=== PATIENT | male | born 1970 | race Caucasian/White ===

== ENCOUNTER 2020-12-21 18:05 | Emergency (ER) | payer OTHER ==
[2020-12-21] MEDS ORDERED: CELEBREX100 MG PO (22:24)
== END 2020-12-21 22:20 | disposition home or self-care (01) ==
LOC: ER1 18:05
DX: S06.9X9A Unspecified intracranial injury with loss of consciousness of unspecified duration, initial encounter (principal); S89.91XA Unspecified injury of right lower leg, initial encounter; S30.810A Abrasion of lower back and pelvis, initial encounter; E78.5 Hyperlipidemia, unspecified; I10 Essential (primary) hypertension; Z90.49 Acquired absence of other specified parts of digestive tract; W19.XXXA Unspecified fall, initial encounter
CPT/HCPCS: 70450; 72125; 72131; 73564; 99284